=== PATIENT | male | born 1960 | race Caucasian/White ===

== ENCOUNTER 2018-11-09 07:16 | Day surgery (SDC) | payer OTHER ==
[2018-11-09] MEDS ORDERED: PROPOFOL 40 ML (08:21)
[2018-11-09] MEDS ORDERED: LIDOCAINE 100 MG SYRINGE (08:21)
== END 2018-11-09 11:24 | disposition home or self-care (01) ==
LOC: GIL 07:16
DX: K92.1 Melena (principal); K64.8 Other hemorrhoids; D17.5 Benign lipomatous neoplasm of intra-abdominal organs
CPT/HCPCS: 45380; 88305